=== PATIENT | male | born 1955 | race Caucasian/White ===

== ENCOUNTER 2018-12-03 05:36 | Inpatient (IN) | payer OTHER ==
[2018-12-03] MEDS ORDERED: ACETAMINOPHEN 500 MG TAB PO ONE (05:56)
[2018-12-03] MEDS ORDERED: GABAPENTIN 300 MG CAP PO ONE (05:56)
[2018-12-03] MEDS ORDERED: ceFAZolin 2 GM/DEXTROSE 100 ML IV ONE (05:56)
[2018-12-03] MEDS ORDERED: LR 1,000 ML IV ONE (05:57)
--- NOTE | 2018-12-03 06:28 | PDHPUP ---
History & Physical Update H&P update statement: This history and physical update is based on an assessment of the patient which was completed after admission or registration (within 24 hours), but prior to the surgery/procedure. H&P update: H&P reviewed & patient examined, no change in patient's condition since H&P completed
[2018-12-03] MEDS ORDERED: CHLORHEXIDINE GLUC HIBICLENS 118 ML BTL TP ONE (06:39)
[2018-12-03] MEDS ORDERED: BACITRACIN 50,000 UNITS/10 ML SYR IRR ONE (06:39)
[2018-12-03] MEDS ORDERED: BUPIVACAINE 0.25% 30 ML SDV ONE (06:39)
[2018-12-03] MEDS ORDERED: EPINEPHrine 1 MG/ML INJ ONE (06:39)
[2018-12-03] MEDS ORDERED: THROMBIN (BOVINE) 5,000 UNIT VIAL TP ONE (06:39)
[2018-12-03] MEDS ORDERED: oxyCODONE IR 5 MG TAB PO PRN ×2 (07:00→09:58)
[2018-12-03] MEDS ORDERED: ONDANSETRON 4 MG/2 ML VIAL IVP PRN (07:00)
[2018-12-03] MEDS ORDERED: MAGNESIUM HYDROXIDE 30 ML UDCUP PO PRN (07:00)
[2018-12-03] MEDS ORDERED: LACTULOSE 20 GM/30 ML UDCUP PO PRN (07:00)
[2018-12-03] MEDS ORDERED: POLYETHYLENE GLYCOL 3350 17 GM PKT PO PRN (07:00)
[2018-12-03] MEDS ORDERED: NS 1,000 ML IV SCH (07:00)
[2018-12-03] MEDS ORDERED: HYDROmorphONE/DILAUDID 1 MG/ML INJ IVP PRN (07:00)
[2018-12-03] MEDS ORDERED: BISACODYL 10 MG SUPP PR PRN (07:00)
[2018-12-03] MEDS ORDERED: ONDANSETRON DISINTEGRATING 4 MG TAB PO PRN (07:00)
[2018-12-03] MEDS ORDERED: diphenhydrAMINE 25 MG CAP PO PRN (07:00)
--- NOTE | 2018-12-03 07:03 | PDANEPAE ---
ANE Past Medical History - Cardiovascular History Hx Hypertension: No Hx Arrhythmias: No Hx Chest Pain: No Hx Coronary Artery / Peripheral Vascular Disease: Yes Hx CHF / Valvular Disease: No Hx Palpitations: No Cardiovascular History Comment: calcium score indicated CAD,not offical dx - Pulmonary History Hx COPD: No Hx Asthma/Reactive Airway Disease: No Hx Recent Upper Respiratory Infection: No Hx Oxygen in Use at Home: No Hx Sleep Apnea: No Sleep Apnea Screening Result - Last Documented: Positive - Neurologic History Hx Cerebrovascular Accident: No Hx Seizures: No Hx Dementia: No - Endocrine History Hx Diabetes: No - Renal History Hx Renal Disorders: No - Liver History Hx Hepatic Disorders: No - Neurological & Psychiatric Hx Hx Neurological and Psychiatric Disorders: Yes Neurological / Psychiatric History Comment: numbness to mostly on left but has occured on right - Cancer History Hx Cancer: Yes Cancer History Comment: prostate - Congenital Disorder History Hx Congenital Disorders: No - GI History Hx Gastrointestinal Disorders: No - Other Health History Other Health History: none - Chronic Pain History Chronic Pain: Yes (right shoulder) - Surgical History Prior Surgeries: 2013 prostatectomy. 2013 hernia repair ANE Review of Systems Review of Systems: - Exercise capacity METS (RN): 5 METS ANE Patient History - Allergies Allergies/Adverse Reactions: dexamethasone [From Decadron] Allergy (Verified 11/12/18 14:04) Hives - Home Medications Home Medications: Aspirin [Aspirin 81mg (*)] 81 mg PO DAILY 11/12/18 [Last Taken Unknown] Atorvastatin Calcium [Lipitor 40 mg (*)] 80 mg PO DAILY 11/12/18 [Last Taken Unknown] Cholecalciferol Vit D3 [Vitamin D3 2000 units tab (OTC)] 2,000 units PO DAILY [Last Taken Unknown] Desvenlafaxine Succinate [Pristiq ER] 100 mg PO DAILY 11/12/18 [Last Taken Unknown] Herbals/Supplements -Info Only 1 ea PO DAILY 11/12/18 [Last Taken Unknown] Multivitamins [Multivitamin (*)] 1 each PO DAILY 11/12/18 [Last Taken Unknown] - NPO status NPO Since - Liquids (Date): 12/02/18 NPO Since - Liquids (Time): 20:00 NPO Since - Solids (Date): 12/03/18 NPO Since - Solids (Time): 20:00 - Smoking Hx Smoking Status: Never smoked - Family Anes Hx Family Hx Anesthesia Complications: none ANE Labs/Vital Signs - Vital Signs Blood Pressure: 114/77 Heart Rate: 56 Respiratory Rate: 19 O2 Sat (%): 97 Height: 172.72 cm Weight: 77.111 kg ANE Physical Exam - Airway Mallampati Score: Class 1 - ASA Status ASA Status: II ANE Anesthesia Plan Anesthesia Plan: general endotracheal anesthesia
[2018-12-03] MEDS ORDERED: MIDAZOLAM 2 MG/2 ML VIAL ONE (07:10)
[2018-12-03] MEDS ORDERED: fentaNYL 100 MCG/2 ML INJ ONE ×2 (07:10→11:20)
[2018-12-03] MEDS ORDERED: PROPOFOL 200 MG/20 ML VIAL ONE (07:11)
[2018-12-03] MEDS ORDERED: PROPOFOL/EMULSION 500 MG/50 ML BOTTLE IV ONE ×2 (07:27→08:54)
[2018-12-03] MEDS ORDERED: METOCLOPRAMIDE 10 MG/2 ML VIAL ONE (07:52)
[2018-12-03] MEDS ORDERED: ONDANSETRON 4 MG/2 ML VIAL ONE (07:52)
[2018-12-03] MEDS ORDERED: ROCURONIUM 50 MG/5 ML VIAL ONE (07:52)
[2018-12-03] MEDS ORDERED: NALOXONE HCL 0.4 MG/ML INJ IVP PRN (09:58)
[2018-12-03] MEDS ORDERED: fentaNYL 100 MCG/2 ML INJ IVP PRN (09:58)
[2018-12-03] MEDS ORDERED: LR 500 ML IV PRN (09:58)
[2018-12-03] MEDS ORDERED: PROMETHAZINE HCL 25 MG/ML INJ IVP PRN (09:58)
--- NOTE | 2018-12-03 10:00 | POSTANESTH ---
Post Anesthetic Evaluation Cardiovascular Status: Normal, Stable Respiratory Status: Normal, Stable Level of Consciousness/Mental Status: Can Participate in Eval Pain Control: Adequate, Prn Tx Ordered Nausea/Vomiting Control: Adequate, Prn Tx Ordered Complications Possibly Related to Anesthesia: None Noted
--- NOTE | 2018-12-03 10:15 | POSTOPPROG ---
Post Op Note Date of Operation: 12/03/18 Surgeon: Verenice Corona Therapeutic Strategy Lead: NURY Perales Anesthesiologist: MD Sofia Anesthesia: GET(General Endotracheal), Local (Specify) Pre-op Diagnosis: Cervical stenosis C3/4 Post-op Diagnosis: Cervical stenosis C3/4 Indication: UE pain, spinal stenosis Procedure: removal of hardware C4 with new ACDF C3/4 Findings: see op report Inf/Abcess present in the surg proc area at time of surgery?: No Depth: Deep Incisional (Fascial) EBL: 50-100 Total fluids administered: see anesthesia record Complications: none
--- NOTE | 2018-12-03 10:19 | SOAPPROG ---
SOAP Progress Note Assessment/Plan: Post Op Note S: Awake and alert. Pt with some expected neck pain O: AFVSS/PERRLA/EOMI no droop CN 2-12 grossly intact +lt touch 5/5 BUE/BLE = CDI Neck soft and supple A/P: 63 yo male that is s/p removal of hardware C4 with new ACDF C3/4 -orders in place -call with any questions or concerns -take medications as directed -pt seen by Dr Corona -silas at all times -PT/OT/ST ordered Objective: Vital Signs Temp Pulse Resp BP Pulse Ox 36 C 53 L 12 118/68 100 12/03/18 09:54 12/03/18 09:54 12/03/18 10:06 12/03/18 10:06 12/03/18 10:06 12/02/18 12/03/18 12/04/18 05:59 05:59 05:59 Intake Total 1000 Output Total 25 Balance 975 ICD10 Worksheet Patient Problems: Problems Problem Status Onset Arthrodesis status Acute Cervical spinal stenosis Acute Cervicalgia Acute - ICD10 Problem Qualifiers (1) Cervical spinal stenosis (2) Arthrodesis status (3) Cervicalgia
--- NOTE | 2018-12-03 10:48 | PDMN ---
Medical Necessity Medical necessity: Pt meets inpt criteria per MD order and Musculoskeletal Surgery GRG, Removal of anterior instrumentation, Medicare inpt only list. 63 y/ o w/cervical stenosis admitted for hardware removal C4 w/new ACDF C3/4 and post -op care.
[2018-12-03] MEDS: DESVENLAFAXINE SUCCINATE 100 MG PO SCH (12:55)
[2018-12-03] MEDS: FAMOTIDINE 20 MG TAB PO SCH ×2 (12:55→22:12)
[2018-12-03] MEDS: ATORVASTATIN CALCIUM 40 MG TAB PO SCH (12:55)
[2018-12-03] MEDS: SENNOSIDES/DOCUSATE SODIUM TAB PO SCH ×2 (12:55→22:09)
[2018-12-03] MEDS: GABAPENTIN 300 MG CAP PO SCH ×2 (14:56→22:09)
[2018-12-03] MEDS: ACETAMINOPHEN 500 MG TAB PO SCH ×2 (14:56→22:08)
[2018-12-03] MEDS: ceFAZolin 2 GM/DEXTROSE 100 ML IV SCH (17:21)
--- NOTE | 2018-12-03 18:10 | GOP ---
[f rep st] OPERATIVE REPORT DATE OF OPERATION: 12/03/2018 SURGEON: Ashley Corona MD NEUROSURGEON: Ashley Corona MD. EGG CRATER: Michael Perales PA-C. PREOPERATIVE DIAGNOSIS: Prior cervical fusion C4-5, C5-6, with solid arthrodesis there with hardware . Severe spinal stenosis C3-4 above the prior fusion with bilateral cervical myeloradiculopathy. POSTOPERATIVE DIAGNOSIS: Prior cervical fusion C4-5, C5-6, with solid arthrodesis there with hardwar e. Severe spinal stenosis C3-4 above the prior fusion with bilateral cervical myeloradiculopathy. PROCEDURE PERFORMED: Removal of anterior cervical hardware at C4, anterior cervical decompression an d fusion at C3-4 above the prior hardware (99915), placement of biomechanical intervertebral device C 3-4, same-incision bone graft harvest, anterior cervical plating C3-4 ([id number]), microscope. FINDINGS: ESTIMATED BLOOD LOSS: 20 mL. INDICATIONS: The patient is a 63-year-old gentleman with symptoms in both arms and an MRI demonstrat ed a large disk protrusion at the C3-4 level above a prior fusion. He also had posterior ligamentous hypertrophy, as well as splaying of the posterior facet joints at C3-4, indicating some degree of in stability and I suggested a single-level ACDF at that level. The risk of screw and hardware malfunct ion and malposition was discussed. He had a solid bony arthrodesis and our intention was to remove h yaz the plate so that a new plate could be placed across C3-4. The risk of esophageal injury, caroti d injury, recurrent laryngeal nerve injury, major vascular injury, dysphagia was discussed. He knew that these were the risks of surgery and he wanted to proceed. He was given a chance to ask question s. DESCRIPTION OF PROCEDURE: The patient was taken to the operating room, placed in supine position. G eneral anesthesia was begun. A midline shoulder roll was placed. His neck was kept neutral, his occ iput gently extended. His neck was sterilely prepped and draped in the usual fashion. We made a tra nsverse incision on the left side of the neck at the level of C4. The subcutaneous tissue was dissec harrison using Bovie cautery down through the platysma, and a combination of sharp and blunt dissection wa s made medial to the sternocleidomastoid and lateral to the strap muscles down to the prevertebral sp yvette. Exposure was very straightforward. We mobilized the esophagus off the prior plate at C4. We t shayan removed the locking mechanism from the plate, as well as screws. We then cut the plate in the mi dportion of the C4 vertebral body. We placed some K-Y Jelly in the wound to catch the metal shavings and then drilled the plate and then sucked all the K-Y Jelly out of the wound. Very little metal re mnant was left in the prevertebral space. The plate was removed with ease. We then took a little ad ditional time making sure that there were no sharp edges on the cut titanium plate that was left in t he neck. We placed a distraction pin in C3 and at C4, distracted at C3-4, and removed the disk and t he cartilaginous endplates. The segment was hypermobile and very easy to distract with very little f orce. Under the microscope, we removed the cartilaginous endplates completely, denuded the underlyin g bone to create arthrodesis and we harvested subchondral bone for arthrodesis and opened the PLL and decompressed the thecal sac and the neural foramen on each side. There was very little bleeding. W mega chose an 8 mm PEEK intervertebral device and packed it with a large amount of bone autograft and in serted it at the C3-4 level with a good fit. We chose a 25 mm ZEVO plate and placed four 3.5 x 17 mm screws into the surrounding bones at C3 and C4, and achieved an excellent radiographic result. They were all locked according to company specification. We achieved meticulous hemostasis and then we c losed the incision in multiple layers using Vicryl sutures. A running PDS was placed in the skin its elf. There were no complications. COMPLICATIONS: None. /[id number]/MODL
[2018-12-04] MEDS: ceFAZolin 2 GM/DEXTROSE 100 ML IV SCH (00:10)
[2018-12-04] MEDS: GABAPENTIN 300 MG CAP PO SCH ×3 (05:59→21:13)
[2018-12-04] MEDS: METHOCARBAMOL 750 MG TAB PO PRN ×2 (06:06→11:07)
[2018-12-04] MEDS: ACETAMINOPHEN 500 MG TAB PO SCH ×3 (06:20→21:14)
--- NOTE | 2018-12-04 07:28 | NEUSURGPN ---
Date of Surgery: 12/03/18 Post Op Day: 1 Assessment/Plan: Assessment: 63 yo male that is s/p removal of hardware C4 with new ACDF C3/4 POD #1 Plan: -s/p C spine fusion: pt states he has expected neck pain. Pt with some swallowing pain but is able to tolerate foot and liquids-we will continue to watch -orders in place -post op xrays pending today -call with any questions or concerns -take medications as directed -pt seen by Dr Corona -collar at all times -PT/OT/ST ordered Subjective: Awake and alert. NAD. Eating/drinking and voiding. No f/c/n/v/d. Objective: AFVSS/PERRLA/EOMI no droop CN 2-12 grossly intact +lt touch 5/5 BUE/BLE = CDI Neck soft and supple Neuro Check Frequency: per routine Urinary Catheter in Place: No - Physician Discussed Patient with : Cj Patient Seen by : Cj Neurosurgery Physical Exam - Vitals, I&O, Labs I and O 12/03/18 12/04/18 12/05/18 05:59 05:59 05:59 Intake Total 2131 Output Total 1426 Balance 705 Weight 77.111 kg Intake: Oral (ml) 1000 IV Intake (ml) 1131 Output: Urine (ml) 1401 Toilet 1401 Estimated Blood Loss (ml) 25 Other: Intake Quantity Yes Sufficient Number of Voids Toilet 2 Vital Signs Temp Pulse Resp BP Pulse Ox 36.6 C 58 L 17 125/73 H 93 12/04/18 07:22 12/04/18 07:22 12/04/18 07:22 12/04/18 07:22 12/04/18 07:22 ICD10 Worksheet Patient Problems: Problems Problem Status Onset Arthrodesis status Acute Cervical spinal stenosis Acute Cervicalgia Acute - ICD10 Problem Qualifiers (1) Cervical spinal stenosis (2) Arthrodesis status (3) Cervicalgia
[2018-12-04] MEDS: ATORVASTATIN CALCIUM 40 MG TAB PO SCH (08:44)
[2018-12-04] MEDS: SENNOSIDES/DOCUSATE SODIUM TAB PO SCH ×2 (08:44→21:14)
[2018-12-04] MEDS: FAMOTIDINE 20 MG TAB PO SCH ×2 (08:44→21:13)
[2018-12-04] MEDS: DESVENLAFAXINE SUCCINATE 100 MG PO SCH ×2 (10:16→17:39)
--- NOTE | 2018-12-04 13:56 | ASMTCMCOM ---
CM Note CM Note Notes: Pt had planned surgery for cervical stenosis. OT/SOURCING ENGINEER rec home, PT rec outpatient. Anticipate pt will d/c home with spouse when medically stable. CM available for changes/needs. Date Signed: 12/04/2018 01:55 PM Electronically Signed By:ASHLEY Ponce
[2018-12-05] MEDS: GABAPENTIN 300 MG CAP PO SCH (05:48)
[2018-12-05] MEDS: ACETAMINOPHEN 500 MG TAB PO SCH (05:48)
--- NOTE | 2018-12-05 07:56 | NEUSURGPN ---
Assessment/Plan: Assessment: 63 yo male that is s/p removal of hardware C4 with new ACDF C3/4 POD #2 Plan: -Mild dysphagia but able to tolerate liquids, medications and soft foods -post op xrays with intact hardware -call with any questions or concerns -collar at all times -PT/OT/ST ordered -Dispo planning -Discussed with Dr. Corona Subjective: mild dysphagia, muscle ache over night, improved this morning Objective: NAD A&Ox3 5/5 BUE/BLE = Dressing CDI Neck soft and supple - Physician Discussed Patient with : Cj Neurosurgery Physical Exam - Vitals, I&O, Labs I and O 12/04/18 12/05/18 12/06/18 05:59 05:59 05:59 Intake Total 2131 400 Output Total 1426 850 Balance 705 -450 Weight 77.111 kg Intake: Oral (ml) 1000 400 IV Intake (ml) 1131 Output: Urine (ml) 1401 850 Toilet 1401 850 Estimated Blood Loss (ml) 25 Other: Intake Quantity Yes Yes Sufficient Number of Voids Toilet 2 1 Vital Signs Temp Pulse Resp BP Pulse Ox 36.6 C 52 L 16 139/75 H 92 12/05/18 03:17 12/05/18 03:17 12/05/18 03:17 12/05/18 03:17 12/05/18 03:17 ICD10 Worksheet Patient Problems: Problems Problem Status Onset Arthrodesis status Acute Cervical spinal stenosis Acute Cervicalgia Acute
[2018-12-05 08:32] VITALS: BP 128/76
[2018-12-05] MEDS: FAMOTIDINE 20 MG TAB PO SCH (08:51)
[2018-12-05] MEDS: SENNOSIDES/DOCUSATE SODIUM TAB PO SCH (08:51)
[2018-12-05] MEDS: ATORVASTATIN CALCIUM 40 MG TAB PO SCH (08:51)
[2018-12-05] MEDS: DESVENLAFAXINE SUCCINATE 100 MG PO SCH (08:52)
[2018-12-06] MEDS ORDERED: ENOXAPARIN 40 MG/0.4 ML SYR SC SCH (09:00)
--- NOTE | 2018-12-08 14:47 | GDS ---
[f rep st] DISCHARGE SUMMARY PRIMARY DIAGNOSES: 1. Prior cervical fusion, C4-5, C5-6, with solid arthrodesis with hardware. 2. Severe spinal stenosis adjacent segment at C3-4 above prior fusion with bilateral cervical myelor adiculopathy. OPERATION/PROCEDURE: Removal of anterior cervical hardware at C4, anterior cervical decompression an d fusion at C3-4 above prior hardware, placement of biomechanical intervertebral device at C3-4, same incision bone graft harvest with anterior cervical plating at C3-[address] Deacon Corona at [facility] on 12/03/2018. HOSPITAL COURSE: Mr. Myers is a 63-year-old gentleman with symptoms in both arms. An MRI demonstr ated a large disk protrusion at C3-4 level, above a prior fusion. He also had posterior ligamentous hypertrophy, as well as splaying of the posterior facet joints at C3-4. This was creating some degre e of instability and suggestion for a single-level ACDF at that level was given to the patient. The risk of screw and hardware malfunction/malposition was discussed. We also talked about other risks o f surgery which are listed. The patient elected to proceed with surgery, and he underwent the above- mentioned procedure, and he tolerated it well. He was admitted postoperatively. He was fit for a ce rvical collar that he will wear as directed. We talked about worsening symptoms. Postoperative x-rays were performed on 12/04/2018, which showed excellent postoperative alignment wit h moderate prevertebral soft tissue swelling. The patient was swallowing, eating and drinking fine. On 12/05/2018, he met criteria for discharge. He had some mild dysphagia, but he was able to tolera te liquids, medications and soft foods. He was cleared from speech therapy, physical therapy and occ upational therapy. Postoperative x-rays were reviewed with the patient, as well as Dr. Corona. He was discharged accord ingly. Patient will follow up with us in the office, likely in 2 weeks and then likely at 2 months, 3 to 6 months, 9 months to a year, 1-1/2 years and 2 years with x-rays when clinically appropriate to ensure radiographic fusion. DISCHARGE MEDICATIONS: Please see med rec form for discharge medications. CONSULTS: None. COMPLICATIONS: None. DISCHARGE CONDITION: Stable and improved. DISCHARGE INSTRUCTIONS: Standard discharge instructions given patient following instrumented cervica l fusion. We talked about worsening symptoms, new pain, weakness, numbness, tingling, loss of bowel or bladder control, problems with gait or balance and immediate patient notification of our office. All questions and concerns were answered. /[id number]/MODL
== END 2018-12-05 11:31 | disposition home or self-care (01) | DRG 473 ==
LOC: F3N 05:36
PROVIDERS: ADMIT Neurological Surgery; ATTEND Neurological Surgery
DX: M50.01 Cervical disc disorder with myelopathy, high cervical region (principal); M50.11 Cervical disc disorder with radiculopathy, high cervical region; R13.10 Dysphagia, unspecified; G47.30 Sleep apnea, unspecified; Z98.1 Arthrodesis status; Z85.46 Personal history of malignant neoplasm of prostate
CPT/HCPCS: 92526-GN; 92610-GN; 97161-GP; 97166-GO; 97535-GO; C1713; J0171; J0690; J2250; J2405; J2704; J2765; J3010